=== PATIENT | male | born 1960 | race Caucasian/White ===

== ENCOUNTER 2023-11-23 11:06 | Emergency (ER) | payer MEDICAID ==
[2023-11-23] VITALS (8 sets, daily range): BP systolic 143–165; BP diastolic 85–98; PULSE 58–82; RESP 12–16; TEMP 97.6; O2SAT 97–100
[~2023-11-23] VITALS: Ht 172.7 cm; Wt 75.0 kg
[2023-11-23] MEDS ORDERED: normal saline 1000ML IV soln IVB ONE (11:15)
[2023-11-23] MEDS ORDERED: fentaNYL/PF 50MCG/1 ML 2ML syringe ONE (15:14)
[2023-11-23] MEDS ORDERED: MIDAZolam 1 MG/ML 5ML VIAL ONE (15:14)
[2023-11-23] MEDS ORDERED: LIDOcaine Viscous 15ml cup ONE (15:14)
[2023-11-23] MEDS ORDERED: OMEP40CA21 PO (16:30)
== END 2023-11-23 17:47 | disposition home or self-care (01) ==
LOC: ER 11:07
DX: T18.128A Food in esophagus causing other injury, initial encounter (principal); K22.2 Esophageal obstruction; K20.90 Esophagitis, unspecified without bleeding
CPT/HCPCS: 43247; 96360; 96361; 99152; 99285; J2250; J3010; J7030; Z7512; A4620